=== PATIENT | male | born 1940 | race Caucasian/White ===

== ENCOUNTER → 2016-05-22 | Outpatient (CLI) | payer BC ==
[~2016-05-22] MED LIST: APIX1TAB3 PO; ASPI-232 PO; ATOR-14 PO; BIOF500T PO; CHOL100010 PO; COEN1CAP7 PO; CYAN100020 PO; DIGO0.1267 PO; DOCU100T7 PO; ENAL10TA88 PO; FRS/40 PO; GLC500 PO; LEVO300T5 PO; MAGN400T6 PO; MOVE FREE ADVANCED PO; MULT-653 PO; OMEGCAP2 PO; PANT1TAB48 PO; ST J300T2 PO; TRAV0.00 OP; VALS160T60 PO; [UNRECOGNIZED DRUG - CODE]; [UNRECOGNIZED DRUG - OTHER] PO
[2016-05-24 12:02] LABS: MICROSOMAL AB 412 IU/ML (<9)
== END | disposition home or self-care (01) ==
LOC: C.LAB1850 13:17
PROVIDERS: ATTEND Internal Medicine
DX: E03.9 Hypothyroidism, unspecified (principal)

== ENCOUNTER → 2016-06-13 | Outpatient (CLI) | payer BC | END | disposition home or self-care (01) | LOC: C.LAB 13:02 | PROVIDERS: ATTEND Specialist | DX: C61 Malignant neoplasm of prostate (principal) ==

== ENCOUNTER → 2016-08-03 | Outpatient (CLI) | payer BC ==
[~2016-08-03] MED LIST changes: +LEVO300T31 PO; -LEVO300T5 PO
[2016-08-03 12:06] LABS: HEMATOCRIT 44.2 % (42-52); MEAN CELL VOLUME 92.3 fL (80-100); MEAN CORPUSCULAR HEMOGLOBIN 32.6 pg (25-34); MEAN CORPUSCULAR HGB CONC 35.3 g/dl (32-36); MEAN PLATELET VOLUME 11.5 fL (7.4-10.4); PLATELET COUNT 150 K/uL (130-400); RED BLOOD COUNT 4.79 M/uL (4.7-6.1); WHITE BLOOD COUNT 5.95 K/uL (4.8-10.8)
[2016-08-03 12:30] LABS: ALT/SGPT 34 U/L (12-78); AST/SGOT 37 U/L (15-37); BLOOD UREA NITROGEN 23 mg/dl (7-18); BUN/CREATININE RATIO 23.3 (10-20); CARBON DIOXIDE 28 mmol/L (21-32); CHLORIDE 104 mmol/L (98-107); GLUCOSE 137 mg/dl (70-99); POTASSIUM 3.6 mmol/L (3.5-5.1); SODIUM 139 mmol/L (136-145)
[2016-08-03 12:41] LABS: ALB/GLOB RATIO 1.2 (0.9-2); ALKALINE PHOSPHATASE 65 U/L (45-117); CHOLESTEROL 119 mg/dl (0-200); CHOLESTEROL/HDL RATIO 3.8; HDL CHOLESTEROL 31 mg/dl; LDL CHOLESTEROL CALCULATED 57 mg/dl; TRIGLYCERIDES 153 mg/dl (0-150); VERY LOW DENSITY LIPOPROT CALC 31 mg/dl
[2016-08-03 12:46] LABS: ESTIMATED AVERAGE GLUCOSE 140 mg/dl; HA1C FLAG Normal (Normal)
[2016-08-03 13:30] LABS: URINE APPEARANCE CLEAR (CLEAR); URINE BILIRUBIN NEG (NEG); URINE COLOR YELLOW; URINE EPITHELIAL CELL AUTO 0-5 /lpf (0-5); URINE NITRITE NEG (NEG); UROBILINOGEN NEG (NEG); ZZUR CULT IF INDIC CLEAN CATCH NO
[2016-08-03 13:31] LABS: MANUAL MICROSCOPIC REQUIRED? NO; REVIEW REQ? NO
== END | disposition home or self-care (01) ==
LOC: C.LAB 11:18
PROVIDERS: ATTEND Internal Medicine
DX: E11.9 Type 2 diabetes mellitus without complications (principal); E03.9 Hypothyroidism, unspecified; I42.2 Other hypertrophic cardiomyopathy; E78.5 Hyperlipidemia, unspecified; I34.0 Nonrheumatic mitral (valve) insufficiency; I10 Essential (primary) hypertension; Z51.81 Encounter for therapeutic drug level monitoring; Z79.899 Other long term (current) drug therapy

== ENCOUNTER → 2017-03-28 | Outpatient (CLI) | payer BC ==
[~2017-03-28] MED LIST changes: +PANT1TAB3 PO; -PANT1TAB48 PO
== END | disposition home or self-care (01) ==
LOC: C.LAB 14:18
PROVIDERS: ATTEND Specialist
DX: C61 Malignant neoplasm of prostate (principal)

== ENCOUNTER → 2017-07-17 | Outpatient (CLI) | payer BC ==
--- NOTE | 2017-07-17 16:21 | DIAGNOSTIC IMAGING REPORT ---
CHEST 2 VIEWS ROUTINE HISTORY: 76 years-old Male R05 Cough productive of purulent [id number] acute productive cough COMPARISON: Chest radiograph 10/13/2015 TECHNIQUE: PA and lateral views of the chest FINDINGS: Cardiac silhouette is again at least moderately enlarged. Left subclavian pacer/AICD appears unchanged. No pneumothorax, pleural effusion, focal airspace consolidation or overt pulmonary edema. The bones of the chest appear grossly intact. Degenerative changes are seen within the shoulders and spine. IMPRESSION: Cardiomegaly without acute process. The above report was generated using voice recognition software. It may contain grammatical, syntax or spelling errors. Electronically signed by: Mendel Ladd M.D. 07/17/2017 4:20 PM Dictated Date/Time: 07/17/2017 4:18 PM
== END | disposition home or self-care (01) ==
LOC: C.RAD1850 15:58
PROVIDERS: ATTEND Internal Medicine
DX: R05 Cough (principal); R50.9 Fever, unspecified; I51.7 Cardiomegaly

== ENCOUNTER → 2017-08-09 | Outpatient (CLI) | payer BC ==
[2017-08-09 13:24] LABS: BASO % 0.6 %; BASO ABS # 0.04 K/uL (0-0.2); EOS % 2.5 %; EOS ABS # 0.18 K/uL (0-0.5); HEMATOCRIT 40.4 % (42-52); HEMOGLOBIN 13.8 g/dL (14.0-18.0); IG# 0.01 K/uL (0.00-0.02); LYMPH % 29.7 %; LYMPH ABS # 2.13 K/uL (1.2-3.4); MEAN CELL VOLUME 92.2 fL (80-100); MEAN CORPUSCULAR HEMOGLOBIN 31.5 pg (25-34); MEAN CORPUSCULAR HGB CONC 34.2 g/dl (32-36); MEAN PLATELET VOLUME 10.8 fL (7.4-10.4); MONO % 12.4 %; MONO ABS # 0.89 K/uL (0.11-0.59); NEUT % 54.7 %; NEUT ABS # 3.93 K/uL (1.4-6.5); PLATELET COUNT 156 K/uL (130-400); RED CELL DISTRIBUTION WIDTH CV 13.9 % (11.5-14.5); RED CELL DISTRIBUTION WIDTH SD 46.1 fL (36.4-46.3); WHITE BLOOD COUNT 7.18 K/uL (4.8-10.8)
[2017-08-09 13:42] LABS: BLOOD UREA NITROGEN 17 mg/dl (7-18); CALCIUM 8.9 mg/dl (8.5-10.1); CARBON DIOXIDE 26 mmol/L (21-32); CREATININE 1.05 mg/dl (0.60-1.40); GLUCOSE 133 mg/dl (70-99); POTASSIUM 3.8 mmol/L (3.5-5.1); SODIUM 132 mmol/L (136-145)
[2017-08-09 13:45] LABS: CREATININE RANDOM URINE 83.8 mg/dl
[2017-08-09 13:53] LABS: ALBUMIN 3.9 gm/dl (3.4-5.0); ALKALINE PHOSPHATASE 78 U/L (45-117); ALT/SGPT 42 U/L (12-78); AST/SGOT 43 U/L (15-37); CHOLESTEROL 99 mg/dl (0-200); LDL CHOLESTEROL CALCULATED 45 mg/dl; TOTAL PROTEIN 7.6 gm/dl (6.4-8.2)
[2017-08-09 13:57] LABS: HEMOGLOBIN A1C 7.1 % (4.5-5.6)
== END | disposition home or self-care (01) ==
LOC: C.LAB 12:31
PROVIDERS: ATTEND Internal Medicine
DX: E11.9 Type 2 diabetes mellitus without complications (principal); E03.9 Hypothyroidism, unspecified; E78.5 Hyperlipidemia, unspecified; I48.91 Unspecified atrial fibrillation; I10 Essential (primary) hypertension

== ENCOUNTER 2017-11-08 19:24 | Inpatient (IN) | payer BC, OTHER ==
[~2017-11-08] VITALS: Ht 182.9 cm; Wt 107.5 kg
[2017-11-08] MEDS ORDERED: ACETAMINOPHEN 500 MG TAB PO STA (19:46)
[2017-11-08] MEDS ORDERED: SODIUM CHLORIDE 0.9% 1000ML 1,000 ML IV ONE (19:46)
--- NOTE | 2017-11-08 20:04 | EMERGENCY ROOM VISIT NOTE ---
History Report prepared by Eder: Marcela Madison Under the Supervision of: Dr. Sunil Odell D.O. First contact with patient: 19:35 Chief Complaint: FEVER Stated Complaint: VERY COLD, FEVER 104 History of Present Illness The patient is a 77 year old male who presents to the Emergency Room with complaints of constant chills and fever beginning this afternoon. His notes he experienced a sudden onset of his symptoms, and that his fever was 104F. The patient notes groin pain that began a week ago, as well as back pain. He denies coughing, nausea, vomiting, abdominal pain, urinary symptoms, rashes, or leg swelling. The patient denies recent travel. He also denies a history of urine infections. The patient states he is diabetic and has history of yeast infections. His notes sugars have been fine recently, except for slightly high values yesterday and today. The patient notes he still has his gallbladder and appendix. Source of History: patient Onset: this afternoon Position: head Symptom Intensity: 104F Quality: other (fever, chills) Timing: constant Associated Symptoms: + back pain, No cough, No nausea, No vomiting, No abdominal pain, No urinary symptoms Note: Associated symptom: groin pain Review of Systems See HPI for pertinent positives & negatives. A total of 10 systems reviewed and were otherwise negative. 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 (2) Fever Family History FHx: diabetes mellitus FHx: gallbladder disease FHx: heart disease FHx: hypertension Social History Smoking Status: Never Smoker Smokeless Tobacco Use: No Alcohol Use: none Drug Use: none Marital Status: Housing Status: lives with significant other Occupation Status: retired Current/Historical Medications Scheduled Apixaban (Eliquis), 1 TAB PO DAILY Ascorbic Acid (Vitamin C), 1 TAB PO DAILY Aspirin (Aspir-81), 1 PO DAILY Coenzyme Q10 (Ubidecarenone) (Coq10), 200 MG PO DAILY Cyanocobalamin (Vitamin B12), 2,500 MCG PO DAILY Digoxin (Digoxin), 0.125 MG PO DAILY Docusate Sodium (Stool Softener), 1 MG PO BID Enalapril Maleate (Vasotec), 20 MG PO DAILY Glimepiride (Glimepiride), 1 TAB PO BID Levothyroxine Sodium (Levothyroxine Sodium), 300 MCG PO DAILY Magnesium Oxide (Mag-Ox), 400 MG PO DAILY Minoxidil (Topical) (Rogaine Mens), 1 DAILY [place]-3 Fatty Acids (Fish Oil), 1,200 MG PO DAILY Pantoprazole (Protonix), 40 MG PO DAILY Tripp's Wort ([place]f ([place] Wort), 1 MG PO BID Travoprost (Travatan Z), 1 OP HS Valsartan/Hctz (Diovan Hct 160MG/25MG), 1 TAB PO DAILY [Move Free Advanced], 1 PO DAILY [Pro-Zyme Probiotic], 1 PO DAILY Allergies Coded Allergies: Codeine (Verified Allergy, Unknown, UNKNOWN, 11/08/17) PER [facility] CHART NURSE Latex1 -Allergic Contact Dermititis (Verified Allergy, Unknown, UNKNOWN, ) PER [facility] CHART NURSE Naproxen (Verified Allergy, Unknown, UNKNOWN, 11/08/17) PER [facility] CHART NURSE Penicillins (Verified Allergy, Unknown, UNKNOWN, 11/08/17) PER [facility] CHART NURSE Physical Exam Vital Signs Date Time Temp Pulse Resp B/P (MAP) Pulse Ox O2 Delivery O2 Flow Rate FiO2 11/08/17 21:40 38.4 124/58 93 Room Air 11/08/17 20:07 93 Room Air 11/08/17 19:27 39.4 89 18 179/91 93 Room Air Physical Exam GENERAL: Patient is awake, alert, and mildly anxious appearing. EYES: The conjunctivae are clear. The pupils are round and reactive. EARS, NOSE, MOUTH AND THROAT: The nose is without any evidence of any deformity. Mucous membranes are dry. Tongue is midline NECK: The neck is nontender and supple. RESPIRATORY: Normal respiratory effort is noted. There is no evidence of wheezing rhonchi or rales to auscultation. CARDIOVASCULAR: Tachycardic but regular rhythm, no def murmur noted GASTROINTESTINAL: Abdomen is mildly distended but soft no guarding or rigidity noticed BACK: No midline tenderness or or step-off noted range of motion in flexion extension as well as rotation no signs of muscle spasm noted. MUSCULOSKELETAL/EXTREMITIES: There is no evidence of gross deformity. Full range of motion is noted in the hips and shoulders. SKIN: Trace pedal edema bilateral. Candidal rash notes in groin and lower abdominal wall. NEUROLOGIC: Patient is awake alert and oriented x3. Strength is symmetric. Medical Decision & Procedures ER Provider Diagnostic Interpretation: Radiology results as stated below per my review and radiologist interpretation: SINGLE VIEW CHEST CLINICAL HISTORY: Sepsis. FINDINGS: An AP, portable, upright chest radiographs are compared to study dated 07/17/2017. The examination is degraded by portable technique and patient rotation. A 3-lead cardiac AICD is unchanged in position. The heart is enlarged and there is atherosclerotic calcification of the thoracic aorta. There is mild pulmonary vascular congestion. No airspace consolidation or large pleural effusion is identified. No pneumothorax is seen. The skeletal structures are osteopenic. The bony thorax is grossly intact. IMPRESSION: 1. Cardiomegaly and AICD with mild pulmonary vascular congestion. 2. No airspace consolidation or large pleural effusion is identified. Electronically signed by: Raoul Everett M.D. 11/08/2017 8:35 PM Dictated Date/Time: 11/08/2017 8:[address] SCAN OF THE BRAIN WITHOUT IV CONTRAST CLINICAL HISTORY: Change in mental status. COMPARISON STUDY: No priors. TECHNIQUE: Unenhanced axial CT scan of the brain is performed from the vertex to the skull base. A dose lowering technique was utilized adhering to the principles of ALARA. CT DOSE: 1994.01 mGy.cm FINDINGS: Brain parenchyma: There are age-related involutional changes noting mild subcortical and periventricular microangiopathic change. There is no hemorrhage, mass effect, or evidence of acute territorial ischemia by CT criteria. Faulkner-white matter is preserved. No extra-axial fluid collection is seen. Ventricles, sulci, cisterns: Prominent secondary to involutional change. Intracranial vasculature: There is atherosclerotic calcification of the cavernous carotid arteries. Calvarium: Unremarkable. Sinuses and mastoids: Mild mucosal thickening is seen throughout the paranasal sinuses. The mastoid air cells are well pneumatized. Orbits: The bony orbits are grossly intact. There are bilateral ocular lens implants. IMPRESSION: There is no hemorrhage, mass effect, or evidence of acute territorial ischemia by CT criteria. Electronically signed by: Raoul Everett M.D. 11/08/2017 9:18 PM Dictated Date/Time: 11/08/2017 9:[address] SCAN OF THE ABDOMEN AND PELVIS WITHOUT IV CONTRAST CLINICAL HISTORY: Fever. COMPARISON STUDY: Ultrasound of the abdominal aorta dated 05/23/2012. TECHNIQUE: CT scan of the abdomen and pelvis is performed from the lung bases to the proximal femora. Images are reviewed in the axial, sagittal, and coronal planes. IV contrast was not administered for this examination as per the referring clinician. Note that the examination was performed in significantly suboptimal fashion without oral and IV contrast. A dose lowering technique was utilized adhering to the principles of ALARA. The examination is degraded by motion artifact. FINDINGS: Lung bases: The heart is markedly enlarged noting trace pericardial fluid. Pacemaker leads are noted. The lung bases are clear. There is a tiny hiatal hernia. Liver: The unenhanced liver is normal in size, contour, and attenuation. There is no intrahepatic biliary ductal dilatation. Gallbladder: Unremarkable. Spleen: Normal in size and attenuation. Pancreas: The unenhanced pancreas is atrophic and grossly unremarkable. Adrenal glands: Unremarkable. Kidneys: The unenhanced kidneys demonstrate cortical atrophy and are without hydronephrosis. There are no renal calculi identified. There is no evidence of contour deforming renal mass lesion. Abdominal vasculature: There is advanced atherosclerotic calcification and ectasia of the abdominal aorta. There is a linear intraluminal calcification seen within the abdominal aorta on image #216. This could represent calcified thrombus versus a focal dissection. Bowel: Mildly distended loops of small bowel are similar to lower quadrant and demonstrate air-fluid levels. This is best seen on image #315. No bowel obstruction is identified. The appendix is well-visualized and normal. Peritoneum: There is trace free fluid in the pelvis. No intraperitoneal free air is seen. Lymphadenopathy: There is enlarged left external iliac chain lymph node seen on image #377 which measures 2.7 x 1.4 cm. Additional prominent retroperitoneal and iliac chain lymph nodes measure up to 10 mm in short axis. Prominent inguinal lymph nodes are also noted. Pelvic viscera: Numerous surgical clips are seen throughout the pelvis. The prostate gland is surgically absent. The bladder is partially decompressed and grossly unremarkable. Skeletal structures: The skeletal structures are osteopenic. There are bilateral pars defects at L5 with minimal anterolisthesis at L5-S1. Moderate lumbosacral spondylosis is observed. No lytic or blastic lesions are seen. IMPRESSION: 1. There are mildly distended loops of small bowel in the left lower quadrant which demonstrate air-fluid levels. The appearance suggests a mild nonspecific enteritis. Clinical correlation will be required. 2. There is no bowel obstruction. 3. The prostate gland is surgically absent. There are mildly enlarged retroperitoneal and iliac chain lymph nodes. These are nonspecific, but if there is a history of prostate cancer than metastatic disease is not excluded. Correlation with any prior outside imaging studies is recommended to assess for stability. 4. There is advanced atherosclerotic calcification mild ectasia of the abdominal aorta. A linear intraluminal calcification within the abdominal aorta may represent calcified thrombus versus a focal dissection. This is age indeterminant but likely chronic. Again, correlation with any prior outside imaging studies is recommended to assess for stability. 5. Trace free fluid in the pelvis is likely on a reactive basis. 6. Marked cardiac enlargement. 7. Additional findings as above. Electronically signed by: Raoul Everett M.D. 11/08/2017 9:29 PM Dictated Date/Time: 11/08/2017 9:19 PM Laboratory Results Test 11/08/17 20:02 11/08/17 20:11 11/08/17 20:17 Urine Color DK YELLOW Urine Appearance CLEAR (CLEAR) Urine pH 6.5 (4.5-7.5) Urine Specific [place] 1.024 (1.000-1.030) Urine Protein 1+ (NEG) Urine Glucose (UA) NEG (NEG) Urine Ketones TRACE (NEG) Urine Occult Blood TRACE (NEG) Urine Nitrite NEG (NEG) Urine Bilirubin NEG (NEG) Urine Urobilinogen NEG (NEG) Urine Leukocyte Esterase NEG (NEG) Urine WBC (Auto) 0 /hpf (0-5) Urine RBC (Auto) 5-10 /hpf (0-4) Urine Hyaline Casts (Auto) 0 /lpf (0-5) Urine Epithelial Cells (Auto) 0-5 /lpf (0-5) Urine Bacteria (Auto) NEG (NEG) Immature Granulocyte % (Auto) 0.3 % White Blood Count 14.39 K/uL (4.8-10.8) Red Blood Count 4.80 M/uL (4.7-6.1) Hemoglobin 14.9 g/dL (14.0-18.0) Hematocrit 44.1 % (42-52) Mean Corpuscular Volume 91.9 fL (80-100) Mean Corpuscular Hemoglobin 31.0 pg (25-34) Mean Corpuscular Hemoglobin Concent 33.8 g/dl (32-36) Platelet Count 137 K/uL (130-400) Mean Platelet Volume 11.2 fL (7.4-10.4) Neutrophils (%) (Auto) 81.6 % Lymphocytes (%) (Auto) 10.8 % Monocytes (%) (Auto) 6.8 % Eosinophils (%) (Auto) 0.3 % Basophils (%) (Auto) 0.2 % Neutrophils # (Auto) 11.74 K/uL (1.4-6.5) Lymphocytes # (Auto) 1.56 K/uL (1.2-3.4) Monocytes # (Auto) 0.98 K/uL (0.11-0.59) Eosinophils # (Auto) 0.04 K/uL (0-0.5) Basophils # (Auto) 0.03 K/uL (0-0.2) Immature Granulocyte # (Auto) 0.04 K/uL (0.00-0.02) Erythrocyte Sedimentation Rate 11 mm/hr (0-14) Prothrombin Time 12.2 SECONDS (9.0-12.0) Prothromb Time International Ratio 1.2 (0.9-1.1) Activated Partial Thromboplast Time 26.1 SECONDS (21.0-31.0) Partial Thromboplastin Ratio 1.0 Total Bilirubin 1.2 mg/dl (0.2-1) Aspartate Amino Transf (AST/SGOT) 56 U/L (15-37) Alanine Aminotransferase (ALT/SGPT) 44 U/L (12-78) Alkaline Phosphatase 77 U/L (45-117) C-Reactive Protein 0.80 mg/dl (0-0.29) Total Protein 7.9 gm/dl (6.4-8.2) Albumin 4.4 gm/dl (3.4-5.0) Globulin 3.5 gm/dl (2.5-4.0) Albumin/Globulin Ratio 1.2 (0.9-2) Lipase 51 U/L (73-393) Lyme Disease IgG Antibody NEG (NEG) Lyme Disease IgM Antibody NEG (NEG) Bedside Lactic Acid Venous 1.98 mmol/L (0.90-1.70) Laboratory results per my review. Medications Administered Medications (Trade) Dose Ordered Sig/Lisandro Route Start Time Stop Time Status Last Admin Dose Admin Sodium Chloride 1,000 ml @ 999 mls/hr Q1H1M ONCE IV 11/08/17 19:46 11/08/17 20:48 DC 11/08/17 20:16 999 MLS/HR Acetaminophen (Tylenol Tab) 1,000 mg NOW STAT PO 11/08/17 19:46 11/08/17 19:49 DC 11/08/17 20:16 1,000 MG Ceftriaxone Sodium 2000 mg/ Dextrose 70 ml @ 100 mls/hr ONE STAT IV 11/08/17 22:13 11/08/17 22:54 DC 11/08/17 22:59 100 MLS/HR ED Course 1944: The patient was evaluated in room B11B. A complete history and physical examination were performed. 1446: Ordered Tylenol Tab 1000 mg PO, NSS 1,000 ml @ 999 mls/hr IV, Cedtriaxone Sodium 2000 mg/Dextrose 70 ml @ 100 mls/hr IV. 5: I discussed the patient's case with Dr. Becerra, [facility] hospitalist. He will evaluate the patient. Medical Decision Etiologies such as viral syndrome, otitis, pharyngitis, pneumonia, influenza, meningitis, urinary tract infection, sepsis, bacteremia, as well as others were entertained. Nursing notes reviewed. Additional history is obtained from the patient's family member. The patient is a 77-year-old male who presented to the emergency department with rigors and fever. No definite source was found for the patient's symptoms. He did have a CT the abdomen and pelvis which did show some abnormalities but I am not sure if these are related to the patient's current condition at this time. Clinically he does not appear to have a GI illness however there were some abnormalities noted in the bowel as well as near his prostate resection site. The patient was treated with IV fluids and IV antibiotics for empiric treatment. I discussed patient's laboratory and radiographic studies with him. Because of his complaints I also discussed his case with the [facility] hospitalist group. They have agreed to evaluate the patient in the emergency department for further management and disposition. Medication Reconcilliation Current Medication List: was personally reviewed by me Blood Pressure Screening Patient's blood pressure: Normal blood pressure Blood pressure disposition: Did not require urgent referral Impression Primary Impression: Fever Additional Impression: Intertrigo Scribe Attestation The scribe's documentation has been prepared under my direction and personally reviewed by me in its entirety. I confirm that the note above accurately reflects all work, treatment, procedures, and medical decision making performed by me. Departure Information Dispostion Being Evaluated By Hospitalist Referrals RV. Sabillon MD (PCP) Patient Instructions My [facility] Problem Qualifiers Primary Impression: Fever Fever type: unspecified Qualified Codes: R50.9 - Fever, unspecified
[2017-11-08 20:27] LABS: BASO % 0.2 %; BASO ABS # 0.03 K/uL (0-0.2); EOS % 0.3 %; EOS ABS # 0.04 K/uL (0-0.5); HEMATOCRIT 44.1 % (42-52); HEMOGLOBIN 14.9 g/dL (14.0-18.0); IG# 0.04 K/uL (0.00-0.02); LYMPH % 10.8 %; LYMPH ABS # 1.56 K/uL (1.2-3.4); MEAN CELL VOLUME 91.9 fL (80-100); MEAN CORPUSCULAR HGB CONC 33.8 g/dl (32-36); MEAN PLATELET VOLUME 11.2 fL (7.4-10.4); MONO % 6.8 %; MONO ABS # 0.98 K/uL (0.11-0.59); NEUT % 81.6 %; NEUT ABS # 11.74 K/uL (1.4-6.5); PLATELET COUNT 137 K/uL (130-400); RED CELL DISTRIBUTION WIDTH CV 14.7 % (11.5-14.5); RED CELL DISTRIBUTION WIDTH SD 49.4 fL (36.4-46.3); WHITE BLOOD COUNT 14.39 K/uL (4.8-10.8)
--- NOTE | 2017-11-08 20:36 | DIAGNOSTIC IMAGING REPORT ---
SINGLE VIEW CHEST CLINICAL HISTORY: Sepsis. FINDINGS: An AP, portable, upright chest radiographs are compared to study dated 07/17/2017. The examination is degraded by portable technique and patient rotation. A 3-lead cardiac AICD is unchanged in position. The heart is enlarged and there is atherosclerotic calcification of the thoracic aorta. There is mild pulmonary vascular congestion. No airspace consolidation or large pleural effusion is identified. No pneumothorax is seen. The skeletal structures are osteopenic. The bony thorax is grossly intact. IMPRESSION: 1. Cardiomegaly and AICD with mild pulmonary vascular congestion. 2. No airspace consolidation or large pleural effusion is identified. Electronically signed by: Raoul Everett M.D. 11/08/2017 8:35 PM Dictated Date/Time: 11/08/2017 8:34 PM
[2017-11-08 20:47] LABS: INR 1.2 (0.9-1.1); PTT PATIENT 26.1 SECONDS (21.0-31.0)
[2017-11-08 20:56] LABS: ALBUMIN 4.4 gm/dl (3.4-5.0); CALCIUM 9.2 mg/dl (8.5-10.1); CREATININE 1.2 mg/dl (0.60-1.40); POTASSIUM 3.9 mmol/L (3.5-5.1); TOTAL PROTEIN 7.9 gm/dl (6.4-8.2)
[2017-11-08] MEDS ORDERED: LNX125 PO (21:09)
[2017-11-08] MEDS ORDERED: ASCO-63 PO (21:09)
[2017-11-08] MEDS ORDERED: ENAL1TAB31 PO (21:09)
[2017-11-08] MEDS ORDERED: GLIM4TAB2 PO (21:09)
--- NOTE | 2017-11-08 21:20 | DIAGNOSTIC IMAGING REPORT ---
CT SCAN OF THE BRAIN WITHOUT IV CONTRAST CLINICAL HISTORY: Change in mental status. COMPARISON STUDY: No priors. TECHNIQUE: Unenhanced axial CT scan of the brain is performed from the vertex to the skull base. A dose lowering technique was utilized adhering to the principles of ALARA. CT DOSE: 1994.01 mGy.cm FINDINGS: Brain parenchyma: There are age-related involutional changes noting mild subcortical and periventricular microangiopathic change. There is no hemorrhage, mass effect, or evidence of acute territorial ischemia by CT criteria. Faulkner-white matter is preserved. No extra-axial fluid collection is seen. Ventricles, sulci, cisterns: Prominent secondary to involutional change. Intracranial vasculature: There is atherosclerotic calcification of the cavernous carotid arteries. Calvarium: Unremarkable. Sinuses and mastoids: Mild mucosal thickening is seen throughout the paranasal sinuses. The mastoid air cells are well pneumatized. Orbits: The bony orbits are grossly intact. There are bilateral ocular lens implants. IMPRESSION: There is no hemorrhage, mass effect, or evidence of acute territorial ischemia by CT criteria. Electronically signed by: Raoul Everett M.D. 11/08/2017 9:18 PM Dictated Date/Time: 11/08/2017 9:16 PM
--- NOTE | 2017-11-08 21:30 | DIAGNOSTIC IMAGING REPORT ---
CT SCAN OF THE ABDOMEN AND PELVIS WITHOUT IV CONTRAST CLINICAL HISTORY: Fever. COMPARISON STUDY: Ultrasound of the abdominal aorta dated 05/23/2012. TECHNIQUE: CT scan of the abdomen and pelvis is performed from the lung bases to the proximal femora. Images are reviewed in the axial, sagittal, and coronal planes. IV contrast was not administered for this examination as per the referring clinician. Note that the examination was performed in significantly suboptimal fashion without oral and IV contrast. A dose lowering technique was utilized adhering to the principles of ALARA. The examination is degraded by motion artifact. FINDINGS: Lung bases: The heart is markedly enlarged noting trace pericardial fluid. Pacemaker leads are noted. The lung bases are clear. There is a tiny hiatal hernia. Liver: The unenhanced liver is normal in size, contour, and attenuation. There is no intrahepatic biliary ductal dilatation. Gallbladder: Unremarkable. Spleen: Normal in size and attenuation. Pancreas: The unenhanced pancreas is atrophic and grossly unremarkable. Adrenal glands: Unremarkable. Kidneys: The unenhanced kidneys demonstrate cortical atrophy and are without hydronephrosis. There are no renal calculi identified. There is no evidence of contour deforming renal mass lesion. Abdominal vasculature: There is advanced atherosclerotic calcification and ectasia of the abdominal aorta. There is a linear intraluminal calcification seen within the abdominal aorta on image #216. This could represent calcified thrombus versus a focal dissection. Bowel: Mildly distended loops of small bowel are similar to lower quadrant and demonstrate air-fluid levels. This is best seen on image #315. No bowel obstruction is identified. The appendix is well-visualized and normal. Peritoneum: There is trace free fluid in the pelvis. No intraperitoneal free air is seen. Lymphadenopathy: There is enlarged left external iliac chain lymph node seen on image #377 which measures 2.7 x 1.4 cm. Additional prominent retroperitoneal and iliac chain lymph nodes measure up to 10 mm in short axis. Prominent inguinal lymph nodes are also noted. Pelvic viscera: Numerous surgical clips are seen throughout the pelvis. The prostate gland is surgically absent. The bladder is partially decompressed and grossly unremarkable. Skeletal structures: The skeletal structures are osteopenic. There are bilateral pars defects at L5 with minimal anterolisthesis at L5-S1. Moderate lumbosacral spondylosis is observed. No lytic or blastic lesions are seen. IMPRESSION: 1. There are mildly distended loops of small bowel in the left lower quadrant which demonstrate air-fluid levels. The appearance suggests a mild nonspecific enteritis. Clinical correlation will be required. 2. There is no bowel obstruction. 3. The prostate gland is surgically absent. There are mildly enlarged retroperitoneal and iliac chain lymph nodes. These are nonspecific, but if there is a history of prostate cancer than metastatic disease is not excluded. Correlation with any prior outside imaging studies is recommended to assess for stability. 4. There is advanced atherosclerotic calcification mild ectasia of the abdominal aorta. A linear intraluminal calcification within the abdominal aorta may represent calcified thrombus versus a focal dissection. This is age indeterminant but likely chronic. Again, correlation with any prior outside imaging studies is recommended to assess for stability. 5. Trace free fluid in the pelvis is likely on a reactive basis. 6. Marked cardiac enlargement. 7. Additional findings as above. Electronically signed by: Raoul Everett M.D. 11/08/2017 9:29 PM Dictated Date/Time: 11/08/2017 9:19 PM
[2017-11-08] MEDS ORDERED: CEFTRIAXONE SOD INJ 2,000 MG in DEXTROSE 5% 50ML 50 ML IV STA (22:13)
--- NOTE | 2017-11-08 22:38 | History and Physical ---
History & Physical Date & Time of Service: Nov 08, 2017 at 22:27 Chief Complaint: Very Cold, Fever 104 Primary Care Physician: RV. Sabillon MD History of Present Illness Source: patient, hospital records, other 77 y/o M Hx hypertrophic cardiomyopathy, DM II, AF, ventricular arrhythmias, HTN , hypothyroidism. The pt presents primarily with rigors. He denies, CP, SOB a cough, PABLO or dysuria. He has had mild diarrhea over the past day. He denies recent antibiotic use. He does describe a red patch over his lower abdomen and BL at his groin which he has treated with baby powder. He regularly takes walks around the [employer] in [place], although he could not recall any tick bites. Leukocytosis and an elevated lactic are present on initial labs. A fever of 104 was confirmed on arrival to the ER. An abdominal CT is consistent with mild enteritis. Past Medical/Surgical History 1) Pacer/defibrillator 2) DM II 3) HTN 4) Hypothyroidism 5) Prostate CA 6) Sustained VT 7) Hypertrophic cardiomyopathy 8) Chronic atrial fibrillation Surgical: 1) Prostatectomy 2) Pacer/defibrillator placement 2004 Social History Smoking Status: Never Smoker Marital Status: Allergies Coded Allergies: Codeine (Verified Allergy, Unknown, UNKNOWN, 11/08/17) PER [facility] CHART NURSE Latex1 -Allergic Contact Dermititis (Verified Allergy, Unknown, UNKNOWN, ) PER [facility] CHART NURSE Naproxen (Verified Allergy, Unknown, UNKNOWN, 11/08/17) PER [facility] CHART NURSE Penicillins (Verified Allergy, Unknown, UNKNOWN, 11/08/17) PER [facility] CHART NURSE Home Medications Scheduled Apixaban (Eliquis), 1 TAB PO DAILY Ascorbic Acid (Vitamin C), 1 TAB PO DAILY Aspirin (Aspir-81), 1 PO DAILY Coenzyme Q10 (Ubidecarenone) (Coq10), 200 MG PO DAILY Cyanocobalamin (Vitamin B12), 2,500 MCG PO DAILY Digoxin (Digoxin), 0.125 MG PO DAILY Docusate Sodium (Stool Softener), 1 MG PO BID Enalapril Maleate (Vasotec), 20 MG PO DAILY Glimepiride (Glimepiride), 1 TAB PO BID Levothyroxine Sodium (Levothyroxine Sodium), 300 MCG PO DAILY Magnesium Oxide (Mag-Ox), 400 MG PO DAILY Minoxidil (Topical) (Rogaine Mens), 1 DAILY [place]-3 Fatty Acids (Fish Oil), 1,200 MG PO DAILY Pantoprazole (Protonix), 40 MG PO DAILY Tripp's Wort (Magdalena Perf ([place] Wort), 1 MG PO BID Travoprost (Travatan Z), 1 OP HS Valsartan/Hctz (Diovan Hct 160MG/25MG), 1 TAB PO DAILY [Move Free Advanced], 1 PO DAILY [Pro-Zyme Probiotic], 1 PO DAILY Review of Systems Constitutional: + fever, + chills Eyes: No worsening of vision ENT: No hearing loss, No unusual epistaxis, No nasal symptoms Respiratory: No cough, No sputum, No wheezing Cardiovascular: No chest pain Abdomen: + diarrhea, No pain, No nausea, No vomiting Genitourinary - Male: No hematuria, No dysuria, No urinary frequency Neurologic: No memory loss, No paralysis, No weakness Psychiatric: No depression symptoms Endocrine: No fatigue Hematologic / Lymphatic: No abnormal bleeding/bruising Integumentary: + rash (Rash over lower abdomen and groin BL) Allergic / Immunologic: No environmental allergies Physical Exam Vital Signs Date Time Temp Pulse Resp B/P (MAP) Pulse Ox O2 Delivery O2 Flow Rate FiO2 11/08/17 21:40 38.4 124/58 93 Room Air 11/08/17 20:07 93 Room Air 11/08/17 19:27 39.4 89 18 179/91 93 Room Air General Appearance: WD/WN, no apparent distress, + pertinent finding ( Overweight, elderly male in no distress) Head: normocephalic Eyes: normal inspection ENT: normal ENT inspection, pharynx normal Neck: supple, no JVD Respiratory/Chest: chest non-tender, lungs clear, normal breath sounds, + pertinent finding (Pacer in L lateral chest - no erythema or tenderness at site) Cardiovascular: regular rate, rhythm, no edema, no gallop, + systolic murmur Abdomen/GI: normal bowel sounds, non tender, soft Back: normal inspection, no CVA tenderness Extremities/Musculoskelatal: normal inspection, no calf tenderness, normal capillary refill Neurologic/Psych: coil shaper II-XII nml as tested, no motor/sensory deficits, alert, oriented x 3 Skin: + pertinent finding (Large erythematous area over lower abdomen - consistent with yeast - several areas of keratosis over face, scalp, trunk) Diagnostics Laboratory Results Results Past 24 Hours Test 11/08/17 20:02 11/08/17 20:11 11/08/17 20:17 Range/Units Urine Color DK YELLOW Urine Appearance CLEAR CLEAR Urine pH 6.5 4.5-7.5 Urine Specific [place] 1.024 1.000-1.030 Urine Protein 1+ NEG Urine Glucose (UA) NEG NEG Urine Ketones TRACE NEG Urine Occult Blood TRACE NEG Urine Nitrite NEG NEG Urine Bilirubin NEG NEG Urine Urobilinogen NEG NEG Urine Leukocyte Esterase NEG NEG Urine WBC (Auto) 0 0-5 /hpf Urine RBC (Auto) 5-10 0-4 /hpf Urine Hyaline Casts (Auto) 0 0-5 /lpf Urine Epithelial Cells (Auto) 0-5 0-5 /lpf Urine Bacteria (Auto) NEG NEG White Blood Count 14.39 4.8-10.8 K/uL Red Blood Count 4.80 4.7-6.1 M/uL Hemoglobin 14.9 14.0-18.0 g/dL Hematocrit 44.1 42-52 % Mean Corpuscular Volume 91.9 80-100 fL Mean Corpuscular Hemoglobin 31.0 25-34 pg Mean Corpuscular Hemoglobin Concent 33.8 32-36 g/dl Platelet Count 137 130-400 K/uL Mean Platelet Volume 11.2 7.4-10.4 fL Neutrophils (%) (Auto) 81.6 % Lymphocytes (%) (Auto) 10.8 % Monocytes (%) (Auto) 6.8 % Eosinophils (%) (Auto) 0.3 % Basophils (%) (Auto) 0.2 % Neutrophils # (Auto) 11.74 1.4-6.5 K/uL Lymphocytes # (Auto) 1.56 1.2-3.4 K/uL Monocytes # (Auto) 0.98 0.11-0.59 K/uL Eosinophils # (Auto) 0.04 0-0.5 K/uL Basophils # (Auto) 0.03 0-0.2 K/uL RDW Standard Deviation 49.4 36.4-46.3 fL RDW Coefficient of Variation 14.7 11.5-14.5 % Immature Granulocyte % (Auto) 0.3 % Immature Granulocyte # (Auto) 0.04 0.00-0.02 K/uL Erythrocyte Sedimentation Rate 11 0-14 mm/hr Prothrombin Time 12.2 9.0-12.0 SECONDS Prothromb Time International Ratio 1.2 0.9-1.1 Activated Partial Thromboplast Time 26.1 21.0-31.0 SECONDS Partial Thromboplastin Ratio 1.0 Sodium Level 133 136-145 mmol/L Potassium Level 3.9 3.5-5.1 mmol/L Chloride Level 97 98-107 mmol/L Carbon Dioxide Level 28 21-32 mmol/L Anion Gap 8.0 3-11 mmol/L Blood Urea Nitrogen 23 7-18 mg/dl Creatinine 1.20 0.60-1.40 mg/dl Est Creatinine Clear Calc Drug Dose 66.0 ml/min Estimated GFR () 66.7 Estimated GFR (Non- 57.6 BUN/Creatinine Ratio 19.5 10-20 Random Glucose 145 70-99 mg/dl Calcium Level 9.2 8.5-10.1 mg/dl Magnesium Level 1.8 1.8-2.4 mg/dl Total Bilirubin 1.2 0.2-1 mg/dl Aspartate Amino Transf (AST/SGOT) 56 15-37 U/L Alanine Aminotransferase (ALT/SGPT) 44 12-78 U/L Alkaline Phosphatase 77 45-117 U/L C-Reactive Protein 0.80 0-0.29 mg/dl Total Protein 7.9 6.4-8.2 gm/dl Albumin 4.4 3.4-5.0 gm/dl Globulin 3.5 2.5-4.0 gm/dl Albumin/Globulin Ratio 1.2 0.9-2 Lipase 51 73-393 U/L Bedside Lactic Acid Venous 1.98 0.90-1.70 mmol/L Microbiology Results 11/08/17 Blood Culture, Received Pending 11/08/17 Blood Culture, Received Pending Diagnostic Radiology 1. There are mildly distended loops of small bowel in the left lower quadrant which demonstrate air-fluid levels. The appearance suggests a mild nonspecific enteritis. Clinical correlation will be required. 2. There is no bowel obstruction. 3. The prostate gland is surgically absent. There are mildly enlarged retroperitoneal and iliac chain lymph nodes. These are nonspecific, but if there is a history of prostate cancer than metastatic disease is not excluded. Correlation with any prior outside imaging studies is recommended to assess for stability. EKG V Paced rhythm - Impression Assessment and Plan 77 y/o M Hx hypertrophic cardiomyopathy, DM II, AF, ventricular arrhythmias, HTN , hypothyroidism. The pt presents primarily with rigors. He denies, CP, SOB a cough, PABLO or dysuria. He has had mild diarrhea over the past day. He denies recent antibiotic use. He does describe a red patch over his lower abdomen and BL at his groin which he has treated with baby powder. He regularly takes walks around the [employer] in [place], although he could not recall any tick bites. Leukocytosis and an elevated lactic are present on initial labs. A fever of 104 was confirmed on arrival to the ER. An abdominal CT is consistent with mild enteritis. 1) Fever - unclear source - potentially GI or skin. Cultures are pending. He received Ceftriaxone in the ER, we will provide 2 doses of Vanc. Additional dosing could then be contingent on the culture results, additional blood tests and assessment by ID. A repeat lactic is pending following fluid resuscitation. 2) AF - Pt is anticoagulated with Apixaban. We will continue Dig. He does not take a B munira. 3) DM II - placed on a SS 4) Hypothyroidism - cont Synthroid 5) Hypertrophic cardiomyopathy - denies a history of volume overload - He is on both an CESARIO and an ERB per his current med list which should be addressed. 6) HTN - HCTZ/Valsartan held - cont Vasotec Full code - Apixaban prophylaxis Total time for this admit including review of labs, meds, imaging, records - discussion with pt and ER attending - 42 min Resuscitation Status VTE Prophylaxis Will order VTE Prophylaxis: Yes
[2017-11-08 23:42] VITALS: BP 151/78; PULSE 90; TEMP 36.9; O2SAT 94; Ht 182.9 cm; Wt 107.5 kg
[2017-11-08] MEDS ORDERED: VANCOMYCIN CONSULT ACTIVE PRN (23:45)
[2017-11-09] VITALS (8 sets, daily range): BP systolic 110–162; BP diastolic 63–76; PULSE 59–86; TEMP 36.6–38.1; O2SAT 92–98
[2017-11-09] MEDS ORDERED: SODIUM CHLORIDE 0.9% 1000ML 1,000 ML IV SCH (00:30)
[2017-11-09] MEDS ORDERED: VANCOMYCIN IV 2,750 MG in SODIUM CHLORIDE 0.9% 500ML 500 ML IV ONE (00:45)
[2017-11-09] MEDS ORDERED: ACETAMINOPHEN 325 MG TAB PO STA (03:52)
[2017-11-09 05:02] LABS: HEMATOCRIT 40.8 % (42-52); HEMOGLOBIN 13.5 g/dL (14.0-18.0); MEAN CELL VOLUME 92.1 fL (80-100); MEAN CORPUSCULAR HEMOGLOBIN 30.5 pg (25-34); MEAN CORPUSCULAR HGB CONC 33.1 g/dl (32-36); MEAN PLATELET VOLUME 11.6 fL (7.4-10.4); PLATELET COUNT 117 K/uL (130-400); RED CELL DISTRIBUTION WIDTH CV 14.9 % (11.5-14.5); RED CELL DISTRIBUTION WIDTH SD 50.4 fL (36.4-46.3); WHITE BLOOD COUNT 18.86 K/uL (4.8-10.8)
[2017-11-09 05:33] LABS: CREATININE 1.16 mg/dl (0.60-1.40); POTASSIUM 3.6 mmol/L (3.5-5.1)
[2017-11-09 05:46] LABS: CALCIUM 7.8 mg/dl (8.5-10.1)
[2017-11-09] MEDS: LEVOTHYROXINE 150 MCG TAB PO SCH (06:30)
[2017-11-09] MEDS: NYSTATIN OINT 15 GM TUBE EXT SCH ×2 (08:14→20:34)
[2017-11-09] MEDS: DOCUSATE SODIUM 100 MG CAP PO SCH ×2 (08:14→20:31)
[2017-11-09] MEDS: ENALAPRIL MALEATE 10 MG TAB PO SCH (08:15)
[2017-11-09] MEDS: CYANOCOBALAMIN 2,500 MCG SUBL TAB PO SCH (08:15)
[2017-11-09] MEDS: PANTOprazole SOD 40 MG TAB PO SCH (08:15)
[2017-11-09] MEDS: ASPIRIN 81 MG ECTAB PO SCH (08:15)
[2017-11-09] MEDS: MAGNESIUM OXIDE 400 MG TAB PO SCH (08:15)
[2017-11-09] MEDS: APIXABAN 5 MG TAB PO SCH ×2 (08:41→20:30)
[2017-11-09] MEDS: VANCOMYCIN IV 1,500 MG in SODIUM CHLORIDE 0.9% 500ML 500 ML IV SCH (11:53)
--- NOTE | 2017-11-09 12:43 | Pharmacy Progress Note ---
Pharmacy Abx Initial Consult Date of Service Nov 09, 2017. Pharmacy Dosing Scope Date of Consult: 11/09/17 Consultation requested by: Dr. ZHU Pharmacy is consulted to initiate Vancomycin IV dosing therapy, order appropriate labs and adjust drug dose/frequency. Subjective The patient is a 77 year old male admitted on Nov 08, 2017 at 23:00. Objective Height (Feet): 6 Height (Inches): 0.00 Weight (Kilograms): 107.500 Vital Signs (Past 12Hrs) Vital Signs Past 12 Hours Date Time Temp Pulse Resp B/P (MAP) Pulse Ox O2 Delivery O2 Flow Rate FiO2 11/09/17 08:35 36.7 69 17 114/64 (81) 96 11/09/17 03:23 38.1 86 18 162/76 (104) 92 Room Air 11/09/17 00:30 94 Room Air 11/08/17 23:42 36.9 90 24 151/78 94 Room Air 11/08/17 23:05 84 20 143/80 96 Lab Results (24Hrs) Laboratory Tests (24 Hours) Test 11/08/17 20:11 11/09/17 00:00 11/09/17 04:42 C-Reactive Protein 0.80 mg/dl (0-0.29) H Erythrocyte Sedimentation Rate 11 mm/hr (0-14) White Blood Count 14.39 K/uL (4.8-10.8) H 18.86 K/uL (4.8-10.8) H Red Blood Count 4.80 M/uL (4.7-6.1) Hemoglobin 14.9 g/dL (14.0-18.0) Hematocrit 44.1 % (42-52) Mean Corpuscular Volume 91.9 fL (80-100) Mean Corpuscular Hemoglobin 31.0 pg (25-34) Mean Corpuscular Hemoglobin Concent 33.8 g/dl (32-36) Platelet Count 137 K/uL (130-400) Mean Platelet Volume 11.2 fL (7.4-10.4) H Neutrophils (%) (Auto) 81.6 % Lymphocytes (%) (Auto) 10.8 % Monocytes (%) (Auto) 6.8 % Eosinophils (%) (Auto) 0.3 % Basophils (%) (Auto) 0.2 % Neutrophils # (Auto) 11.74 K/uL (1.4-6.5) H Lymphocytes # (Auto) 1.56 K/uL (1.2-3.4) Monocytes # (Auto) 0.98 K/uL (0.11-0.59) H Eosinophils # (Auto) 0.04 K/uL (0-0.5) Basophils # (Auto) 0.03 K/uL (0-0.2) Lactic Acid Level 2.0 mmol/L (0.4-2.0) Procalcitonin 0.59 ng/ml (0-0.5) H Micro Results Date/Time Source Procedure Growth Status 11/08/17 20:32 Blood Blood Culture Pending Received 11/08/17 20:11 Blood Parasitology Test - Preliminary Resulted 11/08/17 20:09 Blood Blood Culture Pending Received Assessment & Plan Assessment 77 year old male presenting with rigors, fever of 104, and mild diarrhea over the past day. He has a red patch over his lower abdomen. An abdominal CT is consistent with mild enteritis. Received one dose of Rocephin in the ED. Blood cultures still pending. Plan Vancomycin for treatment of cellulitis/enteritis. Vancomycin IV * Loading dose: 2250 mg (25 mg/kg) * Maintenance dose: 1500 mg IV (14 mg/kg) every 12 hours * Estimated pharmacokinetics: ke=0.060, t1/2=11.5 hours * Goal trough level for cellulitis/enteritis : ~15 mcg/mL * Trough level ordered for 11/10/17 at 1130 Pharmacy will continue to follow and will adjust dose/frequency as necessary. Thank you.
--- NOTE | 2017-11-09 15:07 | Progress Note ---
Progress Note Date of Service Nov 09, 2017. Progress Note ID Consult Dictated [id number] A/P: 1. febrile illness -continue abx, follow culture -thank you
[2017-11-09] MEDS: DIGOXIN 0.125 MG TAB PO SCH (15:34)
--- NOTE | 2017-11-09 15:54 | INFECT. DISEASE CONSULTATION ---
DATE OF CONSULTATION: 11/09/2017 HISTORY OF PRESENT ILLNESS: This is a 77-year-old gentleman who was admitted to the hospital with fevers. He did recall a recent bug bite while in [place] about 1 week ago, but he denies any skin lesion associated with this. He has no pain or itching in this area. He also admits to already he has and clipping them too short. He does have a Band-Aid on his left fifth toe with some dried blood. There is no erythematous area in surrounding or any purulent drainage. He denies any cough, chest pain, shortness of breath, nausea, vomiting, diarrhea or urinary complaints. He denies any sick contacts. Other than his travel to [place], he denies any other travel. He denies any tick bite or rash. In the ER, he was found to have a T-max of 39.4. He is currently afebrile. He was placed on vancomycin empirically and is tolerating this well. He does have a leukocytosis of 18,000. His sed rate, however, is negative at 11. The UA was negative. A Lyme screen is negative. Blood cultures are pending. He did have a CAT scan of the abdomen and pelvis which showed mild enteritis; however, he has no abdominal symptoms. His remaining review of systems is reviewed and unremarkable. PAST MEDICAL HISTORY: Type 2 diabetes, hypertension, hypothyroidism, prostate cancer, hypertrophic cardiomyopathy, AFib. PAST SURGICAL HISTORY: Significant for prostatectomy and an AICD placement. SOCIAL HISTORY: Negative for tobacco use, alcohol use or drug use. Travel history is as above. FAMILY HISTORY: Noncontributory. ALLERGIES: CODEINE, LATEX, NAPROXEN, AND PENICILLIN. MEDICATIONS: Eyedrops, digoxin, vancomycin, Eliquis, Ecotrin, magnesium, Protonix, vitamin B, Colace, Vasotec, nystatin, Synthroid. PHYSICAL EXAMINATION: VITAL SIGNS: Currently afebrile, T-max 39.4, pulse 59, respiratory rate 18, blood pressure 120/63, oxygen saturation is 94% on room air. GENERAL: He is awake, alert and oriented x3. He is in no acute distress. HEENT: Mucous membranes are moist. Extraocular muscles are intact. HEART: Regular. LUNGS: Clear bilaterally. ABDOMEN: Soft, nontender, nondistended. EXTREMITIES: There is no lower extremity edema. Examination of the feet did not reveal any evidence of cellulitis; however, there is a traumatic wound to the left toe. LABORATORY STUDIES: CBC today, white blood cell count 18.8, hemoglobin 13.5, platelets 117. Sed rate 11. Chemistry panel [id number], potassium 3.6, chloride 102, bicarb 23, BUN 24, creatinine 1.1, glucose 165. UA is negative. A Lyme screen is negative. A blood smear was negative. Blood cultures are pending. CT of the abdomen and pelvis showed questionable enteritis and questionable metastatic disease. A chest x-ray was unremarkable. ASSESSMENT AND PLAN: Febrile illness, infectious versus noninfectious. Certainly with history of prostate cancer and questionable concern for metastatic disease, it should be considered, he also has a traumatic wound of the toe, but I do not see any evidence of cellulitis. Will remain on vancomycin pending additional culture results. MTDD
[2017-11-09] MEDS: TRAVOPROST Z 0.004% OPH SOLN 2.5 ML BTL OP SCH (20:30)
--- NOTE | 2017-11-09 23:42 | Progress Note ---
Subjective Date of Service: Nov 09, 2017. Subjective Pt evaluation today including: conversation w/ patient, physical exam Patient reports habving no fever, chills, cough, chest pain. Patient reports to have shortness of breath on exertion and rest. But patient reports that this is chronic. Problem List Medical Problems: (1) Intertrigo Status: Acute Review of Systems Constitutional: No fever, No chills Eyes: No worsening of vision ENT: No hearing loss Respiratory: + shortness of breath, No cough, No sputum Cardiac: No chest pain, No orthopnea Breast: No breast lump Abdomen: No pain Male : No dysuria Neurologic: No memory loss Psychiatric: No depression symptoms Heme: No abnormal bleeding/bruising Endo: No fatigue Skin: No rash All Other Systems: Reviewed and Negative Objective Vital Signs Date Time Temp Pulse Resp B/P (MAP) Pulse Ox O2 Delivery O2 Flow Rate FiO2 11/09/17 23:23 36.7 66 24 146/69 (94) 98 Room Air 11/09/17 19:08 36.7 65 18 127/74 (91) 92 Room Air 11/09/17 16:47 36.6 11/09/17 16:00 Room Air 11/09/17 15:34 59 11/09/17 14:42 37.3 59 18 120/63 (82) 94 11/09/17 11:16 36.7 65 17 110/68 (82) 96 11/09/17 08:35 36.7 69 17 114/64 (81) 96 11/09/17 08:00 Room Air 11/09/17 03:23 38.1 86 18 162/76 (104) 92 Room Air 11/09/17 00:30 94 Room Air Physical Exam General Appearance: WD/WN, no apparent distress Eyes: normal inspection ENT: normal ENT inspection Neck: supple, no adenopathy Respiratory/Chest: chest non-tender, lungs clear, normal breath sounds Cardiovascular: no edema, + systolic murmur Abdomen: normal bowel sounds, non tender, soft Extremities: normal range of motion Neurologic/Psychiatric: alert, oriented x 3 Skin: normal color Lymphatic: no adenopathy Laboratory Results Last 24 Hours Test 11/09/17 00:00 11/09/17 03:26 11/09/17 04:42 11/09/17 11:53 Lactic Acid Level 2.0 mmol/L Bedside Glucose 157 mg/dl 165 mg/dl White Blood Count 18.86 K/uL Red Blood Count 4.43 M/uL Hemoglobin 13.5 g/dL Hematocrit 40.8 % Mean Corpuscular Volume 92.1 fL Mean Corpuscular Hemoglobin 30.5 pg Mean Corpuscular Hemoglobin Concent 33.1 g/dl RDW Standard Deviation 50.4 fL RDW Coefficient of Variation 14.9 % Platelet Count 117 K/uL Mean Platelet Volume 11.6 fL Nucleated RBC Absolute Count (auto) 0.00 K/uL Nucleated Red Blood Cells % 0.0 % Sodium Level 133 mmol/L Potassium Level 3.6 mmol/L Chloride Level 102 mmol/L Carbon Dioxide Level 23 mmol/L Anion Gap 8.0 mmol/L Blood Urea Nitrogen 24 mg/dl Creatinine 1.16 mg/dl Est Creatinine Clear Calc Drug Dose 66.5 ml/min Estimated GFR () 69.5 Estimated GFR (Non- 60.0 BUN/Creatinine Ratio 20.6 Random Glucose 153 mg/dl Calcium Level 7.8 mg/dl Magnesium Level 1.6 mg/dl Procalcitonin 0.59 ng/ml Test 11/09/17 16:32 11/09/17 20:29 Bedside Glucose 122 mg/dl 143 mg/dl Assessment and Plan 77 y/o M Hx hypertrophic cardiomyopathy, DM II, AF, ventricular arrhythmias, HTN , hypothyroidism. The pt presents primarily with rigors. He denies, CP, SOB a cough, PABLO or dysuria. He has had mild diarrhea over the past day. He denies recent antibiotic use. He does describe a red patch over his lower abdomen and BL at his groin which he has treated with baby powder. He regularly takes walks around the [employer] in [place], although he could not recall any tick bites. Leukocytosis and an elevated lactic are present on initial labs. A fever of 104 was confirmed on arrival to the ER. An abdominal CT is consistent with mild enteritis. 1) Fever - unclear source At this moment, unsure if this is infectious or non infectious. Consulted Infectious disease Patient concerned over bug bite. But lyme is negative. Perpheral smear is negative. Patient has been on vancomycin Awaiting cultures Patient has also had history of prostate cancer, will order PSA and do ct scan of chest and abd/pelvis. 2) AF - Pt is anticoagulated with Apixaban. We will continue Dig. He does not take a B munira. 3) Hypertrophic cardymoyopathy: currently holding duiretics for problem 1. will monitor B. cont. CESARIO inh. Holding ARB. 3) DM II - placed on a SS 4) Hypothyroidism - cont Synthroid 5) HTN - HCTZ/Valsartan held - cont Vasotec Continued [facility] stay due to: other Discharge planning: uncertain
[2017-11-10] VITALS: O2SAT 94
[2017-11-10] MEDS: VANCOMYCIN IV 1,500 MG in SODIUM CHLORIDE 0.9% 500ML 500 ML IV SCH ×2 (00:03→12:23)
[2017-11-10] MEDS: POLYETHYLENE (MIRALAX) 17 GM PACK PO PRN (02:56)
[2017-11-10 04:37] VITALS: BP 137/78; PULSE 67; TEMP 37.3; O2SAT 98
[2017-11-10] MEDS: LEVOTHYROXINE 150 MCG TAB PO SCH (06:25)
[2017-11-10 07:07] LABS: CREATININE 1.16 mg/dl (0.60-1.40)
[2017-11-10 07:16] VITALS: BP 135/71; PULSE 61; TEMP 36.5; O2SAT 98
[2017-11-10] MEDS: DOCUSATE SODIUM 100 MG CAP PO SCH ×2 (08:43→20:26)
[2017-11-10] MEDS: MAGNESIUM OXIDE 400 MG TAB PO SCH (08:43)
[2017-11-10] MEDS: ENALAPRIL MALEATE 10 MG TAB PO SCH (08:43)
[2017-11-10] MEDS: PANTOprazole SOD 40 MG TAB PO SCH (08:43)
[2017-11-10] MEDS: APIXABAN 5 MG TAB PO SCH ×2 (08:43→20:27)
[2017-11-10] MEDS: CYANOCOBALAMIN 2,500 MCG SUBL TAB PO SCH (08:44)
[2017-11-10] MEDS: ASPIRIN 81 MG ECTAB PO SCH (08:44)
[2017-11-10] MEDS: NYSTATIN OINT 15 GM TUBE EXT SCH ×2 (08:44→20:25)
[2017-11-10] MEDS ORDERED: OPTIRAY 320 IV PRN (11:30)
[2017-11-10] MEDS ORDERED: VANCOMYCIN TROUGH ONE (11:30)
[2017-11-10 11:40] LABS: BASO % 0.2 %; BASO ABS # 0.02 K/uL (0-0.2); EOS % 0.2 %; EOS ABS # 0.03 K/uL (0-0.5); HEMATOCRIT 38.9 % (42-52); IG# 0.04 K/uL (0.00-0.02); LYMPH % 15.7 %; LYMPH ABS # 2.02 K/uL (1.2-3.4); MEAN CELL VOLUME 93.3 fL (80-100); MEAN CORPUSCULAR HEMOGLOBIN 31.2 pg (25-34); MEAN CORPUSCULAR HGB CONC 33.4 g/dl (32-36); MEAN PLATELET VOLUME 11.5 fL (7.4-10.4); MONO % 17.5 %; MONO ABS # 2.25 K/uL (0.11-0.59); NEUT % 66.1 %; NEUT ABS # 8.52 K/uL (1.4-6.5); PLATELET COUNT 102 K/uL (130-400); RED CELL DISTRIBUTION WIDTH CV 15.1 % (11.5-14.5); RED CELL DISTRIBUTION WIDTH SD 51.6 fL (36.4-46.3); WHITE BLOOD COUNT 12.88 K/uL (4.8-10.8)
--- NOTE | 2017-11-10 12:26 | Pharmacy Progress Note ---
Pharmacy Abx Dose Short Note Date of Service Nov 10, 2017. Assessment & Plan Assessment * 77 year old male receiving empiric VANCOMYCIN IV for fever of unknown origin * Day # 2 of antimicrobial therapy * Pt has h/o bug bite ~ 1 wk ago. Lyme IgG/IgM negative. Peripheral smear pending. * Traumatic wound of toe w/o cellulitis changes or drainage per ID consult. * Mild enteritis on CT abdomen. * Procal is elevated 0.59, Tmax 39.4 last 24 hours Plan Vancomycin * Trough level of 12.4 mcg/mL is potentially therapeutic and this level was drawn before achieving steady-state (after 2 maintenance doses). I anticipate the level to increase w/ repeat dosing. * Continue dose of 1500 mg IV (14mg/kg) every 12 hours * Goal trough level for empiric tx : 10 to 20 mcg/mL * Will repeat level in ~2 days if therapy to continue Pharmacy will continue to follow and will adjust dose/frequency as necessary. Thank you.
--- NOTE | 2017-11-10 12:46 | DIAGNOSTIC IMAGING REPORT ---
CT SCAN OF THE CHEST, ABDOMEN, AND PELVIS WITH IV CONTRAST CLINICAL HISTORY: Fever. COMPARISON STUDY: Chest x-ray dated 11/08/2017. Abdominal CT dated 11/08/2017. TECHNIQUE: Following the IV administration of 93 of Optiray 320, CT scan of the chest, abdomen, and pelvis was performed from the thoracic inlet to the proximal femora. Images are reviewed in the axial, sagittal, and coronal planes. IV contrast was administered without complication. A dose lowering technique was utilized adhering to the principles of ALARA. CT DOSE: 1865.32 mGy.cm FINDINGS: CHEST: Thyroid: Atrophic. Thoracic aorta: There is mild atherosclerotic calcification of the thoracic aorta, which is normal in caliber and demonstrates standard 3-vessel arch anatomy. No dissection is seen. Pulmonary vasculature: The pulmonary trunk is normal in caliber. There are no filling defects identified in the central pulmonary vessels to indicate pulmonary embolus. Note that this examination was not protocoled for evaluation of the pulmonary arteries. Heart: A cardiac pacemaker is present in the left chest wall. The heart is enlarged and there is a small pericardial effusion. There is hypertrophy of the left ventricular wall and the intraventricular septum. The coronary arteries are densely calcified. Lungs and pleural spaces: There are trace pleural effusions. No airspace consolidation is identified typical for pneumonia. There are foci of scarring/atelectasis is seen bilaterally. Mediastinum: There is no mediastinal lymphadenopathy. Claudia: Clear. Axillae: There is no axillary lymphadenopathy. Bony thorax: The skeletal structures are osteopenic. Degenerative change is noted throughout the thoracic spine and in the shoulders. No lytic or blastic lesions are identified. Soft tissues: Gynecomastia is noted. ABDOMEN AND PELVIS: Liver: The contrast-enhanced liver is normal in size, contour, and attenuation. There is no intrahepatic biliary ductal dilatation. The hepatic veins and portal veins are patent. A subcentimeter cyst is suggested adjacent to the gallbladder fossa. Gallbladder: There is significant gallbladder wall thickening and edema. This was not clearly seen on 11/08/2017. No pericholecystic inflammation is identified. Spleen: Normal in size and attenuation. Pancreas: The pancreas is markedly atrophic and grossly unremarkable. Adrenal glands: Unremarkable. Kidneys: The contrast-enhanced kidneys demonstrate cortical atrophy and are without hydronephrosis. The kidneys enhance symmetrically. Abdominal vasculature: There is advanced atherosclerotic calcification and mild ectasia of the abdominal aorta. A focal dissection is seen within the infrarenal abdominal aorta on axial image #212. Bowel: There is no bowel obstruction. The appendix is well-visualized and normal. Peritoneum: There is trace free fluid in the pelvis. No intraperitoneal free air is seen. Lymphadenopathy: There is an enlarged left external iliac chain lymph node seen on image #364 which measures 2.9 x 1.3 cm. There is mild surrounding stranding. Additional prominent retroperitoneal and iliac chain lymph nodes measure up to 10 mm in short axis. Prominent inguinal lymph nodes are also noted. These nodes appear mildly hyperemic. Pelvic viscera: Numerous surgical clips are seen throughout the pelvis. The prostate gland is surgically absent. The bladder is normal as visualized. There is slightly asymmetric subcutaneous soft tissue edema identified in the left thigh as compared to the right. Skeletal structures: The skeletal structures are osteopenic. There are bilateral pars defects at L5 with mild anterolisthesis at L5-S1. Moderate lumbosacral spondylosis is observed. No lytic or blastic lesions are seen. IMPRESSION: 1. There are trace pleural effusions. No airspace consolidation is seen typical for pneumonia. 2. Cardiomegaly and AICD. 3. The gallbladder wall is thickened and edematous. No pericholecystic inflammation is seen. This was not clearly identified on 11/08/2017, although IV contrast was not utilized on the prior study. This is nonspecific and may be related to adjacent hepatocellular disease. Correlate clinically for evidence of acute cholecystitis which is also within the differential. If clinically warranted ultrasound could be considered for further assessment. 4. There is trace nonspecific free fluid in the pelvis. 5. There is a focal dissection identified in the infrarenal abdominal aorta. 6. There is asymmetric subcutaneous soft tissue edema identified in the left thigh as compared to the right. This could be related to a left lower extremity inflammatory process such as cellulitis or possibly deep venous thrombosis. Clinical correlation will be required. 7. There are mildly enlarged and hyperemic left inguinal, iliac chain, and retroperitoneal lymph nodes. These are nonspecific and could be on a reactive basis. Metastatic disease could also have this appearance if there is a history of prostate cancer. 8. No small bowel abdomen mildly the is identified. The prominent loops of small bowel seen on 11/08/2017 have resolved. 9. Additional findings as above. Electronically signed by: Raoul Everett M.D. 11/10/2017 12:32 PM Dictated Date/Time: 11/10/2017 12:15 PM
[2017-11-10 15:01] VITALS: BP 125/81; PULSE 59; TEMP 36.3; O2SAT 95
[2017-11-10] MEDS: DIGOXIN 0.125 MG TAB PO SCH (16:33)
[2017-11-10] MEDS: TRAVOPROST Z 0.004% OPH SOLN 2.5 ML BTL OP SCH (20:26)
[2017-11-10 21:35] VITALS: O2SAT 95
--- NOTE | 2017-11-10 22:21 | Progress Note ---
Subjective Date of Service: Nov 10, 2017. Subjective Pt evaluation today including: conversation w/ patient, physical exam Patient reports no change except for issue that he remains constipated. Problem List Medical Problems: (1) Intertrigo Status: Acute Review of Systems Constitutional: No fever, No chills Eyes: No worsening of vision ENT: No hearing loss Respiratory: + shortness of breath, No cough, No sputum Cardiac: No chest pain, No orthopnea Breast: No breast lump Abdomen: No pain Male : No dysuria Neurologic: No memory loss Psychiatric: No depression symptoms Heme: No abnormal bleeding/bruising Endo: No fatigue Skin: No rash All Other Systems: Reviewed and Negative Objective Vital Signs Date Time Temp Pulse Resp B/P (MAP) Pulse Ox O2 Delivery O2 Flow Rate FiO2 11/10/17 21:35 95 Room Air 11/10/17 16:33 64 11/10/17 16:00 Room Air 11/10/17 15:01 36.3 59 18 125/81 (96) 95 Room Air 11/10/17 08:20 Room Air 11/10/17 07:16 36.5 61 18 135/71 (92) 98 Room Air 11/10/17 04:37 37.3 67 22 137/78 (97) 98 Room Air 11/10/17 00:00 94 Room Air 11/09/17 23:23 36.7 66 24 146/69 (94) 98 Room Air Physical Exam Comments: General Appearance: WD/WN, no apparent distress Eyes: normal inspection ENT: normal ENT inspection Neck: supple, no adenopathy Respiratory/Chest: chest non-tender, lungs clear, normal breath sounds Cardiovascular: no edema, + systolic murmur Abdomen: normal bowel sounds, non tender, soft Extremities: normal range of motion Neurologic/Psychiatric: alert, oriented x 3 Skin: normal color Lymphatic: no adenopathy Laboratory Results Last 24 Hours Test 11/10/17 05:53 11/10/17 07:38 11/10/17 11:26 11/10/17 11:39 Creatinine 1.16 mg/dl Est Creatinine Clear Calc Drug Dose 66.5 ml/min Estimated GFR () 69.5 Estimated GFR (Non- 60.0 Bedside Glucose 140 mg/dl 156 mg/dl White Blood Count 12.88 K/uL Red Blood Count 4.17 M/uL Hemoglobin 13.0 g/dL Hematocrit 38.9 % Mean Corpuscular Volume 93.3 fL Mean Corpuscular Hemoglobin 31.2 pg Mean Corpuscular Hemoglobin Concent 33.4 g/dl Platelet Count 102 K/uL Mean Platelet Volume 11.5 fL Neutrophils (%) (Auto) 66.1 % Lymphocytes (%) (Auto) 15.7 % Monocytes (%) (Auto) 17.5 % Eosinophils (%) (Auto) 0.2 % Basophils (%) (Auto) 0.2 % Neutrophils # (Auto) 8.52 K/uL Lymphocytes # (Auto) 2.02 K/uL Monocytes # (Auto) 2.25 K/uL Eosinophils # (Auto) 0.03 K/uL Basophils # (Auto) 0.02 K/uL RDW Standard Deviation 51.6 fL RDW Coefficient of Variation 15.1 % Immature Granulocyte % (Auto) 0.3 % Immature Granulocyte # (Auto) 0.04 K/uL Prostate Specific Antigen 0.436 ng/ml Vancomycin Level Trough 12.4 mcg/ml Test 11/10/17 16:28 11/10/17 20:12 Bedside Glucose 157 mg/dl 144 mg/dl Assessment and Plan 77 y/o M Hx hypertrophic cardiomyopathy, DM II, AF, ventricular arrhythmias, HTN , hypothyroidism. The pt presents primarily with rigors. He denies, CP, SOB a cough, PABLO or dysuria. He has had mild diarrhea over the past day. He denies recent antibiotic use. He does describe a red patch over his lower abdomen and BL at his groin which he has treated with baby powder. He regularly takes walks around the [place] [place] in [place], although he could not recall any tick bites. Leukocytosis and an elevated lactic are present on initial labs. A fever of 104 was confirmed on arrival to the ER. An abdominal CT is consistent with mild enteritis. 1) Fever - unclear source At this moment, unsure if this is infectious or non infectious. Consulted Infectious disease Patient concerned over bug bite. But lyme is negative. Perpheral smear is negative. Patient has been on vancomycin Awaiting cultures Patient has also had history of prostate cancer, will order PSA and do ct scan of chest and abd/pelvis. 2) AF - Pt is anticoagulated with Apixaban. We will continue Dig. He does not take a B munira. 3) Hypertrophic cardymoyopathy: currently holding duiretics for problem 1. will monitor B. cont. CESARIO inh. Holding ARB. 3) DM II - placed on a SS 4) Hypothyroidism - cont Synthroid 5) HTN - HCTZ/Valsartan held - cont Vasotec Continue to wait for culture results.
[2017-11-10 23:34] VITALS: BP 135/62; PULSE 91; TEMP 36.8; O2SAT 94
[2017-11-11] VITALS: O2SAT 94
[2017-11-11] MEDS: VANCOMYCIN IV 1,500 MG in SODIUM CHLORIDE 0.9% 500ML 500 ML IV SCH ×3 (00:01→23:07)
[2017-11-11] MEDS: LEVOTHYROXINE 150 MCG TAB PO SCH (06:18)
[2017-11-11 06:43] LABS: HEMATOCRIT 40.9 % (42-52); HEMOGLOBIN 13.6 g/dL (14.0-18.0); MEAN CELL VOLUME 93.6 fL (80-100); MEAN CORPUSCULAR HEMOGLOBIN 31.1 pg (25-34); MEAN CORPUSCULAR HGB CONC 33.3 g/dl (32-36); RED CELL DISTRIBUTION WIDTH CV 15.1 % (11.5-14.5); RED CELL DISTRIBUTION WIDTH SD 51.1 fL (36.4-46.3); WHITE BLOOD COUNT 10.85 K/uL (4.8-10.8)
[2017-11-11 07:14] VITALS: BP 144/83; PULSE 62; TEMP 36.8; O2SAT 95
[2017-11-11 07:17] LABS: CALCIUM 8.2 mg/dl (8.5-10.1); CREATININE 1.02 mg/dl (0.60-1.40); POTASSIUM 3.6 mmol/L (3.5-5.1)
[2017-11-11 07:32] LABS: MEAN PLATELET VOLUME 11.2 fL (7.4-10.4); PLATELET COUNT 94 K/uL (130-400)
[2017-11-11] MEDS: NYSTATIN OINT 15 GM TUBE EXT SCH ×2 (08:06→20:00)
[2017-11-11] MEDS: PANTOprazole SOD 40 MG TAB PO SCH (08:06)
[2017-11-11] MEDS: ASPIRIN 81 MG ECTAB PO SCH (08:06)
[2017-11-11] MEDS: MAGNESIUM OXIDE 400 MG TAB PO SCH (08:06)
[2017-11-11] MEDS: APIXABAN 5 MG TAB PO SCH ×2 (08:07→19:59)
[2017-11-11] MEDS: CYANOCOBALAMIN 2,500 MCG SUBL TAB PO SCH (08:07)
[2017-11-11] MEDS: ENALAPRIL MALEATE 10 MG TAB PO SCH (08:07)
[2017-11-11] MEDS: DOCUSATE SODIUM 100 MG CAP PO SCH ×2 (09:37→19:59)
[2017-11-11] MEDS: POLYETHYLENE (MIRALAX) 17 GM PACK PO PRN (09:39)
[2017-11-11] MEDS ORDERED: LACTULOSE SYRUP 20 GM/30 ML UDC PO STA ×2 (15:42→17:51)
[2017-11-11 15:44] VITALS: BP 155/84; PULSE 67; TEMP 36.3; O2SAT 97
[2017-11-11] MEDS ORDERED: BUMETANIDE 1 MG TAB PO ONE (16:00)
[2017-11-11] MEDS: DIGOXIN 0.125 MG TAB PO SCH (16:10)
[2017-11-11] MEDS: POTASSIUM CHLORIDE 20 MEQ TABCR PO SCH (19:58)
[2017-11-11] MEDS: TRAVOPROST Z 0.004% OPH SOLN 2.5 ML BTL OP SCH (19:59)
[2017-11-11 23:07] VITALS: BP 154/79; PULSE 73; TEMP 36.8; O2SAT 95
[2017-11-11] MEDS ORDERED: VANCOMYCIN TROUGH ONE (23:30)
[2017-11-12 00:10] VITALS: O2SAT 94
[2017-11-12] MEDS: LEVOTHYROXINE 150 MCG TAB PO SCH (06:14)
[2017-11-12 07:21] VITALS: BP 148/80; PULSE 86; TEMP 36.5; O2SAT 95
[2017-11-12 08:01] LABS: CREATININE 1.02 mg/dl (0.60-1.40)
[2017-11-12] MEDS: APIXABAN 5 MG TAB PO SCH (08:37)
[2017-11-12] MEDS: MAGNESIUM OXIDE 400 MG TAB PO SCH (08:37)
[2017-11-12] MEDS: PANTOprazole SOD 40 MG TAB PO SCH (08:37)
[2017-11-12] MEDS: ENALAPRIL MALEATE 10 MG TAB PO SCH (08:37)
[2017-11-12] MEDS: ASPIRIN 81 MG ECTAB PO SCH (08:38)
[2017-11-12] MEDS: POTASSIUM CHLORIDE 20 MEQ TABCR PO SCH (08:38)
[2017-11-12] MEDS: CYANOCOBALAMIN 2,500 MCG SUBL TAB PO SCH (08:38)
[2017-11-12] MEDS: DOCUSATE SODIUM 100 MG CAP PO SCH (08:38)
[2017-11-12] MEDS: NYSTATIN OINT 15 GM TUBE EXT SCH (08:40)
[2017-11-12] MEDS ORDERED: BUMETANIDE 1 MG TAB PO SCH (09:00)
--- NOTE | 2017-11-12 09:46 | Pharmacy Progress Note ---
Pharmacy Abx Dose Short Note Date of Service Nov 12, 2017. Assessment & Plan Assessment 77 year old male receiving Vancomycin Day # 4 of antimicrobial therapy. Item Value Date Time Vancomycin Level Trough 14.3 mcg/ml 11/11/17 9263 Plan Vancomycin * Trough level of 14.3 mcg/mL is therapeutic * Continue dose of 1500 mg IV every 12 hours * Goal trough level : 10 to 20 mcg/mL * If medication continues will check trough in 2 days. Pharmacy will continue to follow and will adjust dose/frequency as necessary. Thank you.
--- NOTE | 2017-11-12 10:04 | Progress Note ---
Subjective Date of Service: Nov 12, 2017. Subjective Pt evaluation today including: conversation w/ patient, conversation w/ family , physical exam, chart review, lab review pt seen in followup, at bedside. doing well. no additional fevers. lyme negative, smear negative. wbc nml. blood cultures negative, on vanco. had ct chest/abd/pelvis - thickened gb wall, inguinal nodes, ? mets. states PSA has been increasing as an outpatient and urology is considering hormonal therapy. remains concerned over bug bite, lyme negative. eating well. had some constipation, somewhat better today after laxative. no diarrhea. still with some bloating. all remaining ros reviewed and are negative Problem List Medical Problems: (1) Intertrigo Status: Acute Objective Vital Signs Date Time Temp Pulse Resp B/P (MAP) Pulse Ox O2 Delivery O2 Flow Rate FiO2 11/12/17 08:00 Room Air 11/12/17 07:21 36.5 86 17 148/80 (102) 95 Room Air 11/12/17 00:10 94 Room Air 11/11/17 23:07 36.8 73 20 154/79 (104) 95 Room Air 11/11/17 16:10 67 11/11/17 16:00 Room Air 11/11/17 15:44 36.3 67 22 155/84 (107) 97 Room Air Physical Exam General Appearance: WD/WN, no apparent distress Eyes: normal inspection, EOMI Neck: supple Respiratory/Chest: lungs clear, normal breath sounds, no respiratory distress Cardiovascular: regular rate, rhythm, no edema, no murmur Abdomen: non tender, soft Extremities: non-tender, no pedal edema Neurologic/Psychiatric: alert, oriented x 3 Skin: normal color Laboratory Results Item Value Date Time Blood Culture - Preliminary Resulted 11/08/172031 Blood NO GROWTH TO DATE. Blood Culture - Preliminary Resulted 11/08/172008 Blood NO GROWTH TO DATE. Parasitology Test - Final Complete 11/08/172010 Blood Lyme Disease IgG Antibody NEG 11/08/172010 Lyme Disease IgM Antibody NEG 11/08/172010 Last 24 Hours Test 11/11/17 12:17 11/11/17 16:32 11/11/17 20:18 11/11/17 23:02 Bedside Glucose 163 mg/dl 141 mg/dl 146 mg/dl Vancomycin Level Trough 14.3 mcg/ml Test 11/12/17 07:07 11/12/17 07:40 Creatinine 1.02 mg/dl Est Creatinine Clear Calc Drug Dose 75.6 ml/min Estimated GFR () 81.2 Estimated GFR (Non- 70.1 Bedside Glucose 132 mg/dl Assessment and Plan (1) Fever Assessment & Plan: no bacterial source infection found. will stop vanco. cultures negative. will need continued urology workup post d/c. Continued [facility] stay due to: other Discharge planning: uncertain Problem Qualifiers (1) Fever: Fever type: unspecified Qualified Codes: R50.9 - Fever, unspecified
--- NOTE | 2017-11-12 11:36 | Discharge Instructions ---
Discharge Instructions Date of Service Nov 12, 2017. Admission Reason for Admission: FEVER Discharge Discharge Diagnosis / Problem: Fever, likely viral Discharge Goals Goal(s): Decrease discomfort, Improve function Activity Recommendations Activity Limitations: resume your previous activity . Instructions / Follow-Up Instructions / Follow-Up Followup with PCP and Employment Program Representative in 1-2 weeks. Current Hospital Diet Patient's current hospital diet: Diabetes Type 2 Diet, AHA Diet (Heart Healthy) Discharge Diet Recommended Diet: AHA Diet (Heart Healthy), Low Sodium Diet (2gm Na) Pending Studies Studies pending at discharge: no Medical Emergencies . Who to Call and When: Medical Emergencies: If at any time you feel your situation is an emergency, please call 911 immediately. . Non-Emergent Contact Non-Emergency issues call your: Primary Care Provider Call Non-Emergent contact if: you have any medication questions . . "Provider Documentation" section prepared by Tyler Lemus. .
[2017-11-12] MEDS ORDERED: BMX1 PO (11:56)
[2017-11-12 12:06] VITALS: BP 148/80; PULSE 86; TEMP 36.5; O2SAT 95
--- NOTE | 2017-11-12 12:09 | Clinical Documentation Query ---
CLINICAL DOCUMENTATION QUERY 77 yo male admitted with a fever of 39.4, WBCs of 18.86, respiratory rate of 24, SIRS may be clinically indicated by any 2 of the 4 following indicators: 1.Temperature >38*C or <36C 2.Heart Rate >90/min 3.Respiratory Rate >20/min or PaCO2 <32 mm Hg 4.WBC >12,000/mm3 or <4000/mm3 or >10% immature bands In your clinical opinion is this patient being managed for: ( x ) Systemic inflammatory response syndrome (SIRS) of non-infectious origin ( ) Not Agree ( ) Other explanation of clinical findings (No explanation is considered a No Response) ( ) Unable to determine ( ) Need to Discuss (Phone CDS or qliq) (No discussion is considered a No Response) The medical record reflects the following clinical findings, treatment, and risk factors. Clinical Indicators: As above Treatment: Vancomycin IV, blood cultures, ID consult Risk Factors: Age, fever, elevated lactic acid Please clarify and document your clinical opinion in the progress notes and discharge summary. Terms such as "probable", "suspected", "likely", "questionable", "possible", or "still to be ruled out" are acceptable. IF IN AGREEMENT, YOU MUST DOCUMENT ABOVE DIAGNOSTIC STATEMENT IN DAILY PROGRESS NOTES AND DISCHARGE SUMMARY. This document is not part of the patient's record. Thank You, Yue Camarillo RN, MSN [phone]
--- NOTE | 2017-11-13 07:41 | Progress Note ---
Subjective Date of Service: Nov 11, 2017. Subjective Patient reports no new symptoms today. Problem List Medical Problems: (1) Intertrigo Status: Acute Review of Systems Constitutional: No fever, No chills Eyes: No worsening of vision ENT: No hearing loss Respiratory: + shortness of breath, No cough, No sputum Cardiac: No chest pain, No orthopnea Breast: No breast lump Abdomen: No pain Male : No dysuria Neurologic: No memory loss Psychiatric: No depression symptoms Heme: No abnormal bleeding/bruising Endo: No fatigue Skin: No rash All Other Systems: Reviewed and Negative Objective Vital Signs Date Time Temp Pulse Resp B/P (MAP) Pulse Ox O2 Delivery O2 Flow Rate FiO2 11/12/17 12:06 36.5 86 17 95 Room Air 11/12/17 08:00 Room Air Physical Exam Comments: General Appearance: WD/WN, no apparent distress Eyes: normal inspection ENT: normal ENT inspection Neck: supple, no adenopathy Respiratory/Chest: chest non-tender, lungs clear, normal breath sounds Cardiovascular: no edema, + systolic murmur Abdomen: normal bowel sounds, non tender, soft Extremities: normal range of motion Neurologic/Psychiatric: alert, oriented x 3 Skin: normal color Lymphatic: no adenopathy Laboratory Results Last 24 Hours Test 11/12/17 07:40 11/12/17 11:40 Bedside Glucose 132 mg/dl 147 mg/dl Assessment and Plan 77 y/o M Hx hypertrophic cardiomyopathy, DM II, AF, ventricular arrhythmias, HTN , hypothyroidism. The pt presents primarily with rigors. He denies, CP, SOB a cough, PABLO or dysuria. He has had mild diarrhea over the past day. He denies recent antibiotic use. He does describe a red patch over his lower abdomen and BL at his groin which he has treated with baby powder. He regularly takes walks around the [employer] in [place], although he could not recall any tick bites. Leukocytosis and an elevated lactic are present on initial labs. A fever of 104 was confirmed on arrival to the ER. An abdominal CT is consistent with mild enteritis. 1) Fever - unclear source Possible Systemic inflammatory response syndrome (SIRS) of non-infectious origin But this seems unlikely as patient only had one episode of tachycardia. At this moment, it appears this is a non infectious cause. Consulted Infectious disease Patient concerned over bug bite. But lyme is negative. Perpheral smear is negative. Patient has been on vancomycin Awaiting cultures Patient has also had history of prostate cancer, will order PSA and do ct scan of chest and abd/pelvis. PSA is 0.4 2) AF - Pt is anticoagulated with Apixaban. We will continue Dig. He does not take a B munira. 3) Hypertrophic cardymoyopathy: currently holding duiretics for problem 1. will monitor B. cont. CESARIO inh. Holding ARB. 3) DM II - placed on a SS 4) Hypothyroidism - cont Synthroid 5) HTN - HCTZ/Valsartan held - cont Vasotec Continued [facility] stay due to: other Discharge planning: uncertain
--- NOTE | 2017-11-13 07:47 | Discharge Summary ---
Discharge Summary Date of Service Nov 12, 2017. Discharge Summary Admission Date: Nov 08, 2017 at 23:00 Discharge Date: Nov 12, 2017 Discharge Disposition: Home Principal Diagnosis: Fever of unknown origin/ possible SIRS Procedures: CT SCAN OF THE CHEST, ABDOMEN, AND PELVIS WITH IV CONTRAST CLINICAL HISTORY: Fever. COMPARISON STUDY: Chest x-ray dated 11/08/2017. Abdominal CT dated 11/08/2017. TECHNIQUE: Following the IV administration of 93 of Optiray 320, CT scan of the chest, abdomen, and pelvis was performed from the thoracic inlet to the proximal femora. Images are reviewed in the axial, sagittal, and coronal planes. IV contrast was administered without complication. A dose lowering technique was utilized adhering to the principles of ALARA. CT DOSE: 1865.32 mGy.cm FINDINGS: CHEST: Thyroid: Atrophic. Thoracic aorta: There is mild atherosclerotic calcification of the thoracic aorta, which is normal in caliber and demonstrates standard 3-vessel arch anatomy. No dissection is seen. Pulmonary vasculature: The pulmonary trunk is normal in caliber. There are no filling defects identified in the central pulmonary vessels to indicate pulmonary embolus. Note that this examination was not protocoled for evaluation of the pulmonary arteries. Heart: A cardiac pacemaker is present in the left chest wall. The heart is enlarged and there is a small pericardial effusion. There is hypertrophy of the left ventricular wall and the intraventricular septum. The coronary arteries are densely calcified. Lungs and pleural spaces: There are trace pleural effusions. No airspace consolidation is identified typical for pneumonia. There are foci of scarring/atelectasis is seen bilaterally. Mediastinum: There is no mediastinal lymphadenopathy. Claudia: Clear. Axillae: There is no axillary lymphadenopathy. Bony thorax: The skeletal structures are osteopenic. Degenerative change is noted throughout the thoracic spine and in the shoulders. No lytic or blastic lesions are identified. Soft tissues: Gynecomastia is noted. ABDOMEN AND PELVIS: Liver: The contrast-enhanced liver is normal in size, contour, and attenuation. There is no intrahepatic biliary ductal dilatation. The hepatic veins and portal veins are patent. A subcentimeter cyst is suggested adjacent to the gallbladder fossa. Gallbladder: There is significant gallbladder wall thickening and edema. This was not clearly seen on 11/08/2017. No pericholecystic inflammation is identified. Spleen: Normal in size and attenuation. Pancreas: The pancreas is markedly atrophic and grossly unremarkable. Adrenal glands: Unremarkable. Kidneys: The contrast-enhanced kidneys demonstrate cortical atrophy and are without hydronephrosis. The kidneys enhance symmetrically. Abdominal vasculature: There is advanced atherosclerotic calcification and mild ectasia of the abdominal aorta. A focal dissection is seen within the infrarenal abdominal aorta on axial image #212. Bowel: There is no bowel obstruction. The appendix is well-visualized and normal. Peritoneum: There is trace free fluid in the pelvis. No intraperitoneal free air is seen. Lymphadenopathy: There is an enlarged left external iliac chain lymph node seen on image #364 which measures 2.9 x 1.3 cm. There is mild surrounding stranding. Additional prominent retroperitoneal and iliac chain lymph nodes measure up to 10 mm in short axis. Prominent inguinal lymph nodes are also noted. These nodes appear mildly hyperemic. Pelvic viscera: Numerous surgical clips are seen throughout the pelvis. The prostate gland is surgically absent. The bladder is normal as visualized. There is slightly asymmetric subcutaneous soft tissue edema identified in the left thigh as compared to the right. Skeletal structures: The skeletal structures are osteopenic. There are bilateral pars defects at L5 with mild anterolisthesis at L5-S1. Moderate lumbosacral spondylosis is observed. No lytic or blastic lesions are seen. IMPRESSION: 1. There are trace pleural effusions. No airspace consolidation is seen typical for pneumonia. 2. Cardiomegaly and AICD. 3. The gallbladder wall is thickened and edematous. No pericholecystic inflammation is seen. This was not clearly identified on 11/08/2017, although IV contrast was not utilized on the prior study. This is nonspecific and may be related to adjacent hepatocellular disease. Correlate clinically for evidence of acute cholecystitis which is also within the differential. If clinically warranted ultrasound could be considered for further assessment. 4. There is trace nonspecific free fluid in the pelvis. 5. There is a focal dissection identified in the infrarenal abdominal aorta. 6. There is asymmetric subcutaneous soft tissue edema identified in the left thigh as compared to the right. This could be related to a left lower extremity inflammatory process such as cellulitis or possibly deep venous thrombosis. Clinical correlation will be required. 7. There are mildly enlarged and hyperemic left inguinal, iliac chain, and retroperitoneal lymph nodes. These are nonspecific and could be on a reactive basis. Metastatic disease could also have this appearance if there is a history of prostate cancer. 8. No small bowel abdomen mildly the is identified. The prominent loops of small bowel seen on 11/08/2017 have resolved. 9. Additional findings as above. Electronically signed by: Raoul Everett M.D. 11/10/2017 12:32 PM Dictated Date/Time: 11/10/2017 12:15 PM Medication Reconciliation New Medications: Bumetanide (Bumetanide) 1 Mg Tab 1 MG PO QAM for 30 Days, #30 TAB Continued Medications: Apixaban (Eliquis) 5 Mg Tab 1 TAB PO DAILY Ascorbic Acid (Vitamin C) Unknown Strength Tab 1 TAB PO DAILY Aspirin (Aspir-81) 81 Mg Tab 1 PO DAILY Coenzyme Q10 (Ubidecarenone) (Coq10) 200 Mg Cap 200 MG PO DAILY Cyanocobalamin (Vitamin B12) 1,000 Mcg Tab 2500 MCG PO DAILY Digoxin (Digoxin) 0.125 Mg Tab 0.125 MG PO DAILY Docusate Sodium (Stool Softener) 100 Mg Tab 1 MG PO BID Enalapril Maleate (Vasotec) 20 Mg Tab 20 MG PO DAILY Glimepiride (Glimepiride) Unknown Strength Tab 1 TAB PO BID, TAB Levothyroxine Sodium (Levothyroxine Sodium) 300 Mcg Tab 300 MCG PO DAILY Magnesium Oxide (Mag-Ox) 400 Mg Tab 400 MG PO DAILY, TAB Minoxidil (Topical) (Rogaine Mens) 5 % Aer 1 DAILY [place]-3 Fatty Acids (Fish Oil) 1 Cap Cap 1200 MG PO DAILY Pantoprazole (Protonix) 40 Mg Tab 40 MG PO DAILY, #30 TAB Tripp's Wort ([place] Perf ([place] Wort) 300 Mg Tab 1 MG PO BID Travoprost (Travatan Z) 0.004 % Shahbaz 1 OP HS [Move Free Advanced] () 1 PO DAILY [Pro-Zyme Probiotic] () 1 PO DAILY Discontinued Medications: Valsartan/Hctz (Diovan Hct 160MG/25MG) 1 Tab Tab 1 TAB PO DAILY, TAB Discharge Exam Review of Systems Constitutional: No fever, No chills Eyes: No worsening of vision ENT: No hearing loss Respiratory: + shortness of breath, No cough, No sputum Cardiac: No chest pain, No orthopnea Breast: No breast lump Abdomen: No pain Male : No dysuria Neurologic: No memory loss Psychiatric: No depression symptoms Heme: No abnormal bleeding/bruising Endo: No fatigue Skin: No rash All Other Systems: Reviewed and Negative Physical Exam Comments: General Appearance: WD/WN, no apparent distress Eyes: normal inspection ENT: normal ENT inspection Neck: supple, no adenopathy Respiratory/Chest: chest non-tender, lungs clear, normal breath sounds Cardiovascular: no edema, + systolic murmur Abdomen: normal bowel sounds, non tender, soft Extremities: normal range of motion Neurologic/Psychiatric: alert, oriented x 3 Skin: normal color Lymphatic: no adenopathy Hospital Course 77 y/o M Hx hypertrophic cardiomyopathy, DM II, AF, ventricular arrhythmias, HTN , hypothyroidism. The pt presents primarily with rigors. He denies, CP, SOB a cough, PABLO or dysuria. He has had mild diarrhea over the past day. He denies recent antibiotic use. He does describe a red patch over his lower abdomen and BL at his groin which he has treated with baby powder. He regularly takes walks around the [place] in [place], although he could not recall any tick bites. Leukocytosis and an elevated lactic are present on initial labs. A fever of 104 was confirmed on arrival to the ER. An abdominal CT is consistent with mild enteritis. 1) Fever - unclear source Possible Systemic inflammatory response syndrome (SIRS) of non-infectious origin But this seems unlikely as patient only had one episode of tachycardia. At this moment, it appears this is a non infectious cause. Consulted Infectious disease Patient concerned over bug bite. But lyme is negative. Peripheral smear is negative. Patient has been on vancomycin, but this was discontinued on day of discharge as myslef and infectious disease do not believe this to be an infectious process Cultures have remained negative, and patient has remained afebrile. Patient has also had history of prostate cancer, will order PSA and do ct scan of chest and abd/pelvis. PSA is 0.4 Ct scan findings noted above. Lymphadenopathy: Concern over metastatic Prostate cancer There is an enlarged left external iliac chain lymph node seen on image #364 which measures 2.9 x 1.3 cm. Prominent inguinal lymph nodes are also noted. These nodes appear mildly hyperemic. Concern over metastatic prostate cancer. Patient will followup with urologist. Will also forward this discharge summary to Urologist. 2) AF - Pt is anticoagulated with Apixaban. We will continue Dig. He does not take a B munira. 3) Hypertrophic cardiomyopathy: will resume diuretics 1. will monitor B. cont. CESARIO inh. Holding ARB due to risk of hyperkalemia when combined with cesario inhibitor 3) DM II - placed on a SS during hospital stay. 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 The presence of dissection does not appear to increase the risk of complication or mortality for repair of concomitant aneurysm or for treatment of stenosis. Will defer to PCP. Total Time Spent: Greater than 30 minutes This includes examination of the patient, discharge planning, medication reconciliation, and communication with other providers. Discharge Instructions Please refer to the electronic Patient Visit Report (Discharge Instructions) for additional information. Follow-Up F/U wit PCP and Urology within 1 month Additional Copies To RV. Sabillon MD; Bravo Roman MD
== END 2017-11-12 12:55 | disposition home or self-care (01) | DRG 864 ==
LOC: C.EDB 19:25 → C.MS2W 23:00 → ENRESERV 23:31
PROVIDERS: ADMIT Internal Medicine; ATTEND Internal Medicine Sports Medicine
DX: R50.9 Fever, unspecified (principal); Z95.810 Presence of automatic (implantable) cardiac defibrillator; I42.2 Other hypertrophic cardiomyopathy; Z83.3 Family history of diabetes mellitus; Z82.49 Family history of ischemic heart disease and other diseases of the circulatory system; Z91.040 Latex allergy status; Z88.6 Allergy status to analgesic agent; Z88.0 Allergy status to penicillin; Z88.5 Allergy status to narcotic agent; E11.9 Type 2 diabetes mellitus without complications; I10 Essential (primary) hypertension; E03.9 Hypothyroidism, unspecified; I48.2 Chronic atrial fibrillation; R59.1 Generalized enlarged lymph nodes; Z85.46 Personal history of malignant neoplasm of prostate; R00.0 Tachycardia, unspecified

== ENCOUNTER → 2017-11-30 | Outpatient (CLI) | payer BC ==
[~2017-11-30] MED LIST changes: +ASCO-63 PO; -ATOR-14 PO; -BIOF500T PO; +BMX1 PO; -CHOL100010 PO; -DIGO0.1267 PO; -ENAL10TA88 PO; +ENAL1TAB31 PO; -FRS/40 PO; -GLC500 PO; +GLIM4TAB2 PO; +LNX125 PO; -MULT-653 PO; -VALS160T60 PO
[2017-11-30 14:23] LABS: HEMOGLOBIN A1C 6.8 % (4.5-5.6)
[2017-11-30 14:56] LABS: ALBUMIN 3.9 gm/dl (3.4-5.0); ALKALINE PHOSPHATASE 74 U/L (45-117); ALT/SGPT 34 U/L (12-78); AST/SGOT 42 U/L (15-37); BLOOD UREA NITROGEN 17 mg/dl (7-18); CALCIUM 8.6 mg/dl (8.5-10.1); CARBON DIOXIDE 26 mmol/L (21-32); CREATININE 1.05 mg/dl (0.60-1.40); GLUCOSE 133 mg/dl (70-99); POTASSIUM 3.9 mmol/L (3.5-5.1); SODIUM 138 mmol/L (136-145); TOTAL PROTEIN 7.7 gm/dl (6.4-8.2)
== END | disposition home or self-care (01) ==
LOC: C.LAB 13:07
PROVIDERS: ATTEND Internal Medicine
DX: E11.9 Type 2 diabetes mellitus without complications (principal); E03.9 Hypothyroidism, unspecified